=== PATIENT | male | born 1955 | race Two or more races ===

== ENCOUNTER 2021-04-23 13:45 | Emergency (ER) | payer MEDICARE, OTHER ==
[~2021-04-23] VITALS: Ht 177.8 cm; Wt 90.0 kg
[2021-04-23] MEDS ORDERED: SODIUM CHLORIDE 0.9% 1,000 ML IV ONE (14:45)
[2021-04-23 20:20] VITALS: BP 89/56
== END 2021-04-23 20:23 | disposition hospice, home (50) ==
LOC: ER 13:53 → CANBEDREQ 16:55 → ER 20:23
DX: R60.1 Generalized edema (principal); Z51.5 Encounter for palliative care; R41.82 Altered mental status, unspecified; D64.9 Anemia, unspecified; J44.9 Chronic obstructive pulmonary disease, unspecified; E11.9 Type 2 diabetes mellitus without complications; I10 Essential (primary) hypertension; F20.9 Schizophrenia, unspecified
CPT/HCPCS: 71045; 82962; 93005; 96360; 99283